=== PATIENT | female | born 1950 | race African-American/Black ===

== ENCOUNTER → 2017-11-29 | Outpatient (CLI) | payer OTHER ==
[~2017-11-29] MED LIST: METHACHOLINE KIT (J7674) INH
== END ==
LOC: M CARPUL 08:53
DX: R05 Cough (principal)

== ENCOUNTER → 2019-07-09 | Outpatient (REF) | LOC: M LAB LCGH 14:57 | PROVIDERS: ATTEND Surgery | DX: K82.8 Other specified diseases of gallbladder (principal) ==

== ENCOUNTER → 2019-07-31 | Outpatient (REF) | payer OTHER ==
[2019-08-03 14:22] LABS: HPV HYBRID CAPTURE II Negative (Negative)
== END ==
LOC: M LAB LCGH 12:19
PROVIDERS: ATTEND Nurse Practitioner Adult Health
DX: Z12.4 Encounter for screening for malignant neoplasm of cervix (principal)
CPT/HCPCS: 87624; G0123